=== PATIENT | male | born 1995 | race Caucasian/White ===

== ENCOUNTER 2025-08-01 16:03 | Emergency (ER) | payer SELFPAY ==
[2025-08-01 16:21] VITALS: BP 146/76; PULSE 65; RESP 19; TEMP 36.8; O2SAT 96; BMI 39.3
[2025-08-01] MEDS: FLUORESCEIN SOD 1 MG STRP BOTH EYES (16:49)
--- NOTE | 2025-08-01 17:33 | EDNOTE_ITS ---
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 He states he was able to see the foreign body but after using Q-tips on it was unable to get it out. He has irritation and pain in the left eye. There is note change in his visual acuity. MD chief complaint: eye pain, eye redness and eye injury Onset (ago): day(s) (2 days ago) Onset description: sudden Duration: constant Location: left eye Eye Symptoms: redness and pain Place: work Mechanism: occurred while hammering/grinding Severity: severe Severity scale (1-10): 10 If Pain, Quality: aching Associated symptoms: none Treatments Prior to Arrival: other (As above) Related Data Patient tetanus UTD: Yes Allergies Allergy/AdvReac Type Severity Reaction Status Date / Time No Known Allergies Allergy Verified 08/01/25 16:06 Review of Systems Review of Systems Systems Reviewed: All systems reviewed, normal except as documented Past Medical History Social History SMOKING STATUS: Never smoker ED Exam General Limitations: Present no limitations General appearance: Present alert Head Head exam: Present atraumatic and normocephalic Expanded Eye Exam Slit lamp exam: performed (Slit-lamp could not be performed due to the slit lamp needing a repair) Eyelids: left: normal inspection and erythema Pupils: Left: regular, round and reactive Sclera/Conjunctival: left: normal inspection, injection, foreign body and tenderness Anterior chamber: left: normal inspection ENT ENT exam: Present normal exam and normal oropharynx Neck Neck exam: Present normal inspection, full ROM and trachea midline Course Course Course Narrative: Tetracaine and fluorescein ophthalmic ordered. Quality Measures none Orders Category Date Time Status Eye cover ONCE Care 08/01/25 17:31 Active Erythromycin Op Oint 0.5% Med 08/01/25 17:31 Discontinued 1 gm LEFT EYE X1 ONE Fluorescein Sodium [Bio-Ria] Med 08/01/25 16:34 Discontinued 1 mg BOTH EYES X1 ONE Proparacaine Op Debra 0.5% [Alcaine Op Debra 0.5%] Med 08/01/25 17:18 Discontinued See Dose Instructions RIGHT EYE X1 ONE TETRACAINE Op Debra 0.5% [Pontocaine Op Debra 0.5%] Med 08/01/25 21:00 Discon tinued 1 drop BOTH EYES BID Vital Signs Vital signs: Vital Signs Temperature 98.2 F 08/01/25 16:21 Pulse Rate 65 08/01/25 16:21 Respiratory Rate 19 08/01/25 16:21 Blood Pressure 146/76 H 08/01/25 16:21 Pulse Oximetry (%) 96 08/01/25 16:21 Oxygen Delivery Method Room Air 08/01/25 16:21 PROCEDURES: FB Removal Eye Time Out performed: Yes Location: eye (L) Topical anesthetic used: proparacaine Foreign body: metal Evidence of corneal penetration: No Technique: irrigation and electric makayla Procedure performed under: direct visualization with magnification Post-procedure medication: ophthalmic antibiotic Patient tolerated procedure: well and no complications Eye MDM Narrative MDM Narrative:: Patient has had a 2-day history of metal fragment from grinding iron hit his left eye. He states he is able to see it near his pupil. He tried to use Q- tips but was unable to to remove it. Tetracaine given to the left eye 2 drops and fluorescein staining was used to the left eye. The foreign body was visualized. A grinder hardboard was used and it appears that the foreign body was removed. Patient's eye was flushed with approximately 10 cc of normal saline. Patient data External records reviewed:: None Clinical information provided by:: patient Social determinants that could affect healthcare access:: none Patient has the following chronic illnesses:: None How is presenting disease/condition affected by chronic disease/condition?: no chronic disease Evaluation data The following diagnostics were reviewed and interpreted by me:: other (specify) (None) Lab and/or radiology exams considered but not ordered:: None Interpretation Summary: And a Medications / Prescriptions Medications or Prescriptions considered but not ordered:: None Medication administrations:: Medication Administration History Discontinued Medications Erythromycin (Erythromycin Op Oint 0.5% 1 Gm Packet) 1 gm LEFT EYE X1 ONE Stop: 08/01/25 17:32 Last Admin: 08/01/25 17:51 Dose: 1 gm Documented By: OA Co-signed By: ALENA Fluorescein Sodium (Fluorescein Sod 1 Mg Strp) 1 mg BOTH EYES X1 ONE Stop: 08/01/25 16:35 Last Admin: 08/01/25 16:49 Dose: 1 mg Documented By: OA Proparacaine HCl (Proparacaine Op Debra 0.5% 15 Ml Btl) 0 drop RIGHT EYE X1 ONE Stop: 08/01/25 17:19 Last Admin: 08/01/25 17:50 Dose: 2 drop Documented By: OA Tetracaine HCl (Tetracaine Pf Op Debra 0.5% 4 Ml Drpette) 1 drop BOTH EYES BID JOHNNY Stop: 08/31/25 20:59 Last Admin: 08/01/25 17:19 Dose: Not Given Documented By: OA Non-Admin Reason: Discontinued As above Consultations Consultation(s) initiated? (list below): No Diagnosis Eye Problem Differential Diagnosis: other (Metallic Foreign Body Left Eye) Most likely diagnosis given after review of the tests above:: Metal foreign body to the left eye status post removal with a grinder hardboard. Admission Indicated Admission indicated?: not indicated Admission Request Was there a request for admission?: No Disposition Plan Disposition Plan: Discharge Discharge Attestation Discharge Attestation: The patient and all family members were given an opportunity to ask questions and understood the discharge instructions. Discharge instructions specifically effects, indications for sooner follow up or return to the emergency department, and the expected course of current diagnosis. Patient condition: Stable Discharge Plan Plan Patient Disposition: HOME (Self Care) Problem List Clinical Impression: Foreign body Patient/Caregiver Discharge Instructions Additional Instructions: We have placed erythromycin ointment 1 time to your left eye and patched your eye. Foreign body should have been removed however our slit-lamp was not available today to clearly visualize. Please remove your eye patch in the morning and you should feel much better with the foreign body removed. If you still have a foreign body sensation you will need to see your service engine repairer tomorrow. Print Language: Hungarian Stand Alone Forms: Zara Award Info., Patient Portal Info Letter
[2025-08-01] MEDS: PROPARACAINE OP SOL 0.5% 15 ML BTL RIGHT EYE (17:50)
[2025-08-01] MEDS: Erythromycin Op Oint 0.5% 1 GM PACKET LEFT EYE (17:51)
== END 2025-08-01 18:38 | disposition home or self-care (01) ==
LOC: SERX 18:19
PROVIDERS: Emergency Provider Family Medicine
DX: T15.12XA Foreign body in conjunctival sac, left eye, initial encounter (principal)
CPT/HCPCS: 99283; A9270